=== PATIENT | male | born 1990 | race Two or more races ===

== ENCOUNTER 2018-02-04 05:40 | Emergency (ER) | payer OTHER ==
[2018-02-04] MEDS ORDERED: CYCLOBENZAPRINE HCL 10 MG TABLET PO ONE (06:18)
[2018-02-04] MEDS ORDERED: KETOROLAC TROMETHAMINE 60 MG/2 ML SDV IM ONE (06:18)
--- NOTE | 2018-02-04 06:23 | ER Document Report ---
ED General - General Chief Complaint: Back Pain Stated Complaint: BACK PAIN, NO INJURY Time Seen by Provider: 02/04/18 06:06 Mode of Arrival: Ambulatory Information source: Patient Notes: 27-year-old male with no reported past medical history presents with complaint of back pain that started 1 day prior to arrival. Pain is located in his low back bilaterally. He describes it as a throbbing, constant pain that is relieved with warm compresses. Patient denies any aggravating factors. He denies any recent injury, prior similar symptoms. Patient denies fever, saddle anesthesia, urinary retention and fecal incontinence, IV drug use. He does state that he was recently ill last week with diarrhea which has now resolved. TRAVEL OUTSIDE OF THE [place] IN LAST 30 DAYS: No - HPI Onset: Yesterday Onset/Duration: Gradual, Persistent, Worse Quality of pain: Achy, Throbbing Severity: Mild Associated symptoms: None Exacerbated by: Denies Relieved by: Other - warm compresses Similar symptoms previously: No Recently seen / treated by doctor: No - Related Data Allergies/Adverse Reactions: No Known Allergies Allergy (Unverified 02/04/18 05:45) Past Medical History - General Information source: Patient, [facility] Records - Social History Smoking Status: Never Smoker Frequency of alcohol use: None Drug Abuse: None Lives with: Parents Family History: Reviewed & Not Pertinent Patient has suicidal ideation: No Patient has homicidal ideation: No - Medical History Medical History: Negative Renal/ Medical History: Denies: Hx Peritoneal Dialysis Review of Systems - Review of Systems Constitutional: denies: Chills, Fever, Weakness EENT: denies: Blurred vision, Difficulty swallowing Cardiovascular: denies: Chest pain, Palpitations, Heart racing, Lightheaded Respiratory: denies: Short of breath Gastrointestinal: denies: Abdominal pain Genitourinary: denies: Dysuria, Flank pain, Hematuria Male Genitourinary: No symptoms reported Musculoskeletal: Back pain Skin: denies: Rash Neurological/Psychological: denies: Weakness, Gait changes, Headaches -: Yes All other systems reviewed and negative Physical Exam - Vital signs Vitals: Temp Pulse Resp BP Pulse Ox 98.7 F 92 18 125/79 99 02/04/18 05:44 02/04/18 05:44 02/04/18 05:44 02/04/18 05:44 02/04/18 05:44 - Notes Notes: PHYSICAL EXAMINATION: GENERAL: Well-appearing, well-nourished and in no acute distress. HEAD: Atraumatic, normocephalic. EYES: Pupils equal round and reactive to light, extraocular movements intact, sclera anicteric, conjunctiva are normal. ENT: Nares patent, oropharynx clear without exudates. Moist mucous membranes. NECK: Normal range of motion, supple without lymphadenopathy LUNGS: Breath sounds clear to auscultation bilaterally and equal. No wheezes rales or rhonchi. HEART: Regular rate and rhythm without murmurs ABDOMEN: Soft, nontender, nondistended abdomen. No guarding, no rebound. No masses appreciated. Thoracic and lumbar spine nontender. Musculoskeletal: Normal range of motion, no pitting or edema. No cyanosis. NEUROLOGICAL: Cranial nerves grossly intact. Normal speech, normal gait. Normal sensory, motor exams PSYCH: Normal mood, normal affect. SKIN: Warm, Dry, normal turgor, no rashes or lesions noted. Course - Re-evaluation Re-evalutation: Laboratory 02/04/18 02/04/18 06:30 06:30 Sodium 142.7 Potassium 4.4 Chloride 102 Carbon Dioxide 29 Anion Gap 12 BUN 15 Creatinine 0.89 Est GFR ( Amer) > 60 Est GFR (Non-Af Amer) > 60 Glucose 101 Calcium 9.9 Urine Color YELLOW Urine Appearance CLEAR Urine pH 6.0 Ur Specific [place] 1.015 Urine Protein NEGATIVE Urine Glucose (UA) NEGATIVE Urine Ketones NEGATIVE Urine Blood SMALL H Urine Nitrite NEGATIVE Urine Bilirubin NEGATIVE Urine Urobilinogen NEGATIVE Ur Leukocyte Esterase NEGATIVE Urine WBC (Auto) 0 Urine RBC (Auto) 0 Urine Mucus (Auto) RARE Urine Ascorbic Acid NEGATIVE 02/04/18 06:22 27-year-old male with no reported past medical history presents with complaint of back pain that started 1 day prior to arrival. Pain is located in his low back bilaterally. He describes it as a throbbing, constant pain that is relieved with warm compresses. Patient denies any aggravating factors. He denies any recent injury, prior similar symptoms. Patient denies fever, saddle anesthesia, urinary retention and fecal incontinence, IV drug use. Patient was seen by myself upon arrival. Vital signs were reviewed. Patient is afebrile, normotensive and not hypoxic. Patient does not appear toxic or dehydrated. They are in no acute distress. Previous medical records and nursing notes reviewed. Patient received Toradol, Flexeril. 02/04/18 07:12 BMP shows no electrolyte abnormalities and normal kidney function. Urinalysis is essentially normal with a small amount of blood. Patient's pain is not consistent with urolithiasis. Exam consistent with musculoskeletal back pain. Patient has no red flag symptoms which would raise concern for cauda equina spinal abscess these include fever, midline tenderness, lower extremity weakness , saddle anesthesia, urinary retention, history of IV drug use. Patient will be discharged home with a prescription for Flexeril, Motrin. He was advised to keep active and use heat if that helps him. Patient provided the opportunity to ask questions, and express concerns. Discharge instructions discussed. Patient is agreeable with discharge home. Return indications explained and discussed with the patient who displays understanding. Patient encouraged to return to the emergency department immediately with any concerns. 02/04/18 07:13 - Vital Signs Vital signs: Temp Pulse Resp BP Pulse Ox 98.7 F 92 18 125/79 99 02/04/18 05:44 02/04/18 05:44 02/04/18 05:44 02/04/18 05:44 02/04/18 05:44 - Laboratory Result Diagrams: 02/04/18 06:30 Laboratory results interpreted by me: 02/04/18 06:30 Urine Blood SMALL H Discharge - Discharge Clinical Impression: Low back pain Qualifiers: Chronicity: acute Back pain laterality: bilateral Sciatica presence: without sciatica Qualified Code(s): M54.5 - Low back pain Condition: Good Disposition: HOME, SELF-CARE Instructions: Low Back Pain ([facility]), Pain Medication Injection ([facility]), Muscle Strain ([facility]), Warm Packs ([facility]) Additional Instructions: Follow up with your physician tomorrow for further care or return to the ED IMMEDIATELY if symptoms worsen or new concerns occur. If you cannot afford to follow up with your primary care physician a list of low cost clinics have been provided at the end of your discharge papers as well. Prescriptions: Cyclobenzaprine HCl [Flexeril 10 mg Tablet] 10 mg PO TIDP PRN #15 tab PRN Reason: Ibuprofen [Motrin 800 mg Tablet] 800 mg PO Q8H PRN #30 tab PRN Reason:
[2018-02-04 06:51] LABS: APPEARANCE,URINE CLEAR; BILIRUBIN,URINE NEGATIVE (NEGATIVE); COLOR,URINE YELLOW; GLUCOSE, URINE NEGATIVE (NEGATIVE); KETONES,URINE NEGATIVE (NEGATIVE); LEUKOCYTE ESTERASE,URINE NEGATIVE (NEGATIVE); NITRITE,URINE NEGATIVE (NEGATIVE); PROTEIN,URINE NEGATIVE (NEGATIVE); URINE SPECIFIC GRAVITY 1.015; UROBILINOGEN,URINE NEGATIVE mg/dL (<2.0)
[2018-02-04 06:57] LABS: ANION GAP 12 (5-19); BLOOD UREA NITROGEN 15 mg/dL (7-20); CALCIUM 9.9 mg/dL (8.4-10.2); CARBON DIOXIDE 29 mmol/L (22-30); CHLORIDE 102 mmol/L (98-107); GLUCOSE 101 mg/dL (75-110); POTASSIUM 4.4 mmol/L (3.6-5.0); SODIUM 142.7 mmol/L (137-145)
[2018-02-04 07:29] VITALS: BP 122/71
== END 2018-02-04 07:29 | disposition home or self-care (01) ==
LOC: ER 05:40
DX: M54.5 Low back pain (principal)
CPT/HCPCS: 99283; 96372; 36415; 80048; 81001; J1885